=== PATIENT | female | born 1935 | race Caucasian/White ===

== ENCOUNTER 2018-11-08 14:45 | Emergency (ER) | payer OTHER ==
[~2018-11-08] VITALS: Ht 154.9 cm; Wt 71.7 kg
[~2018-11-08 14:45] MED LIST: APAP650; ASPIRIN EC81 M1; ATORVASTATIN CA20 MG; BACTRIM DS TAB1 EACH PO; BENAZEPRIL HCL20 MG; CAL-MAG TABLET1 EACH; KEFLEX500 MG PO; LEVOXYL88 MCG PO; LOPRESSOR25; LORTAB 7.5/5001 TA3 PO; OMEPRAZOLE 20 M20 M1; OS-CAL 500+D C1 EACH PO; PREDNISONE 20 M20 MG PO; SYSTANE BALANCE10 ML OP
[2018-11-08] MEDS ORDERED: SYNTHROID100 MC1 PO (15:12)
[2018-11-08] MEDS ORDERED: LOPRESSOR25 PO (15:13)
[2018-11-08] MEDS ORDERED: CALCIUM VIT D PO (15:15)
[2018-11-08] MEDS ORDERED: JOINT SUPPORT1 EACH PO (15:16)
[2018-11-08] MEDS ORDERED: VISION FORMULA1 EAC1 PO (15:16)
[2018-11-08] MEDS ORDERED: MINERALS PO (15:18)
[2018-11-08] MEDS ORDERED: MVI PO (15:18)
[2018-11-08] MEDS ORDERED: NORCO 5-325 TA1 EACH PO (16:18)
[2018-11-08 16:38] VITALS: BP 128/72
== END 2018-11-08 16:38 | disposition home or self-care (01) ==
LOC: M.ERS 14:45
DX: S43.084A Other dislocation of right shoulder joint, initial encounter (principal); S60.512A Abrasion of left hand, initial encounter; D64.9 Anemia, unspecified; I10 Essential (primary) hypertension; E78.00 Pure hypercholesterolemia, unspecified; K21.9 Gastro-esophageal reflux disease without esophagitis; Z88.8 Allergy status to other drugs, medicaments and biological substances; W00.0XXA Fall on same level due to ice and snow, initial encounter; Y93.89 Activity, other specified; Y92.89 Other specified places as the place of occurrence of the external cause; Y99.8 Other external cause status